=== PATIENT | female | born 1990 | race Caucasian/White ===

== ENCOUNTER → 2017-05-31 | Outpatient (CLI) | payer MEDICAID ==
[~2017-05-31] MED LIST: IBUP600 PO; OXYC1SOL5 PO; PREN0.01 PO; ZOLO20CO PO
--- NOTE | 2017-06-02 16:02 | HM ---
Date Performed: 05/31/2017 Time Performed: 16:24:00 HOOKUP DATE: 05/31/17 04:24:00 PM Tue ANALYSIS START TIME: 05/31/2017 4:29:00 PM ANALYSIS END TIME: 06/01/2017 4:19:13 PM PATIENT AGE: 27 PATIENT HEIGHT PATIENT WEIGHT DRUG LIST PATIENT DIAGNOSIS: pvcs TEST NARRATIVE: The patient's average heart rate was 96 BPM. Heart rates greater than 120 B PM were noted 13% of the time. No episodes of bradycardia were noted. No pauses exceeding 2.0 se conds were noted. 1353 ventricular ectopics, which represented 1% of the total beat count, were n oted. The highest ventricular ectopic frequency occurred from 01:00 AM to 02:00 AM Wed. During this time 91 VE(s) occurred. Ventricular ectopics were observed as 1331 isolated beat(s) and as 11 coupl et(s). No runs were noted. 1 supraventricular ectopics, which represented < 1% of the total beat count, were noted. The highest supraventricular ectopic frequency occurred from 11:00 PM to 12:00 A M Wed. During this time 1 SVE(s) occurred. Multiple episodes of ST depression (defined as -1.0 m m or more) were noted in channel 1. The maximum depression of -3.2 mm occurred at 11:53:29 PM Tue. Multiple episodes of ST depression (defined as -1.0 mm or more) were noted in channel 2. The maxim um depression of -3.2 mm occurred at 11:53:30 PM Tue. Multiple episodes of ST depression (defined as -1.0 mm or more) were noted in channel 3. The maximum depression of -2.8 mm occurred at 05:43:42 P M Tue. TEST INTERPRETATION: 24 Hour Holter Monitor - Dr. Rex Michelle Patient monitored for 23 hours and 50 minutes. Patient was in normal Sinus rhythm with an average heart rate of 96 beats per minute, minimum heart rate of 63 beats per minute. There were 1331 premature ventricular contractions, and 1 premature ventricular contraction, and 1 prematur e atrial contraction. There were 11 ventricular couplets. There was a period of sinus tachycardia at a rate of 146 beats per minute, occurring at 01:23 a.m. Signed by : Rex Michelle
== END ==
LOC: HCAV 15:31
PROVIDERS: ATTEND Obstetrics & Gynecology
DX: I49.3 Ventricular premature depolarization (principal)
CPT/HCPCS: 93225; 93226